=== PATIENT | female | born 1955 | race Caucasian/White ===

== ENCOUNTER → 2017-08-11 | Outpatient (CLI) | payer BC | LOC: MAMMO 12:52 → RAD 13:00 | DX: Z12.31 Encounter for screening mammogram for malignant neoplasm of breast (principal); N63.41 Unspecified lump in right breast, subareolar ==

== ENCOUNTER → 2017-08-26 | Outpatient (CLI) | payer BC | LOC: MAMMO 09:30 | DX: N63.10 Unspecified lump in the right breast, unspecified quadrant (principal) ==

== ENCOUNTER 2018-05-19 04:05 | Emergency (ER) | payer BC ==
[2018-05-19 04:52] LABS: ALBUMIN 2.7 g/dL (3.5-5.0); CALCIUM 8.4 mg/dL (8.4-10.2); POTASSIUM 5.5 mmol/L (3.6-5.0); TOTAL BILIRUBIN 0.7 mg/dL (0.2-1.3); TOTAL PROTEIN 4.7 g/dL (6.3-8.2)
[2018-05-19 04:53] LABS: TROPONIN-I 0.1 ng/mL (0.00-0.06)
[2018-05-19 04:57] LABS: CKMB ISOENZYME 2.8 ng/mL (0.6-3.5); HEMATOCRIT 21.3 % (37.0-47.0); HEMOGLOBIN 6.4 g/dL (12.5-16.0); MEAN CELL VOLUME 101 fl (78-100); MEAN CORPUSCULAR HEMOGLOBIN 30 pg (27-31); MEAN CORPUSCULAR HGB CONC 30 g/dL (33-37); MEAN PLATELET VOLUME 10.4 fl (7.4-10.4); PLATELET COUNT 284 K/mm3 (130-400); RED BLOOD COUNT 2.12 M/mm3 (4.10-5.30); RED CELL DISTRIBUTION WIDTH 18.2 % (11.5-14.5); WHITE BLOOD COUNT 14.8 K/mm3 (4.8-10.8)
[2018-05-19 05:32] LABS: D-DIMER 3.71 mg/L FEU (0.15-0.50)
[2018-05-19 05:46] LABS: BAND 1 % (0-10); LYMPHOCYTE 16 % (20-51); METAMYELOCYTE 1 % (0-0); MONOCYTE 4 % (3-10); MYELOCYTE 4 % (0-0); NEUTROPHILS 76 % (42-75)
[2018-05-19 05:47] LABS: POLYCHROMASIA 1+
[2018-05-19 05:48] LABS: NUCLEATED RED BLOOD CELL 3 (0-6)
[2018-05-19 05:57] LABS: URINE APPEARANCE HAZY; URINE COLOR YELLOW
[2018-05-19 05:58] LABS: URINE BILIRUBIN NEGATIVE (NEGATIVE); URINE BLOOD 50 ery/uL (NEGATIVE); URINE GLUCOSE 50 mg/dL mg/dL (NEGATIVE); URINE KETONE NEGATIVE (NEGATIVE); URINE LEUKOCYTE ESTERASE NEGATIVE (NEGATIVE); URINE NITRATE NEGATIVE (NEGATIVE); URINE PROTEIN(semi-quant) 2+ mg/dL (NEGATIVE); URINE UROBILINOGEN NORMAL (NORMAL)
[2018-05-19 06:00] VITALS: BP 82/49
[2018-05-19] MEDS ORDERED: ACETAMINOPHEN-H1 TA2 PO (07:40)
[2018-05-19] MEDS ORDERED: PREDNISONE10 MG PO (07:41)
[2018-05-19] MEDS ORDERED: ACETAMINOPHEN-O1 TAB PO (07:42)
[2018-05-19] MEDS ORDERED: ALENDRONATE SOD70 MG PO (07:43)
[2018-05-19] MEDS ORDERED: AMLODIPINE BESYL5 MG PO (07:43)
[2018-05-19] MEDS ORDERED: ACETAMINOPHEN325 M1 PO (07:43)
[2018-05-19] MEDS ORDERED: ATORVASTATIN CA20 MG PO (07:44)
[2018-05-19] MEDS ORDERED: ASPIRIN ADULT L81 M3 PO (07:44)
[2018-05-19] MEDS ORDERED: CYCLOBENZ5 MG PO (07:45)
[2018-05-19] MEDS ORDERED: FLUTICASON0.05 MG/AC NS (07:46)
[2018-05-19] MEDS ORDERED: GLIMEPIRIDE2 M1 PO (07:46)
[2018-05-19] MEDS ORDERED: BENADRYL PO (07:46)
[2018-05-19] MEDS ORDERED: MELOXICAM7.5 MG PO (07:47)
[2018-05-19] MEDS ORDERED: GLUCOPHAGE PO (07:49)
[2018-05-19] MEDS ORDERED: MYCOPHENOLATE500 MG PO (07:50)
[2018-05-19] MEDS ORDERED: WARFARIN SOD5 MG PO (07:51)
== END 2018-05-19 06:00 | disposition short-term general hospital (02) ==
LOC: ED 04:05
PROVIDERS: Physician Assistant
DX: K92.2 Gastrointestinal hemorrhage, unspecified (principal); I21.4 Non-ST elevation (NSTEMI) myocardial infarction; E86.0 Dehydration; I95.9 Hypotension, unspecified; E87.5 Hyperkalemia; E87.2 Acidosis; R74.8 Abnormal levels of other serum enzymes; R79.9 Abnormal finding of blood chemistry, unspecified; R79.1 Abnormal coagulation profile; R09.02 Hypoxemia; R00.0 Tachycardia, unspecified; R06.03 Acute respiratory distress; E11.9 Type 2 diabetes mellitus without complications; I10 Essential (primary) hypertension; Z86.718 Personal history of other venous thrombosis and embolism; Z79.01 Long term (current) use of anticoagulants; Z79.82 Long term (current) use of aspirin; Z79.899 Other long term (current) drug therapy; Z79.84 Long term (current) use of oral hypoglycemic drugs; I27.20 Pulmonary hypertension, unspecified; I71.9 Aortic aneurysm of unspecified site, without rupture; J84.9 Interstitial pulmonary disease, unspecified; M06.9 Rheumatoid arthritis, unspecified
CPT/HCPCS: J3430; J7030; J7060

== ENCOUNTER → 2020-04-03 | Outpatient (CLI) | payer BC ==
[~2020-04-03] MED LIST: ACETAMINOPHEN-H1 TA2 PO; ACETAMINOPHEN-O1 TAB PO; ACETAMINOPHEN325 M1 PO; ALENDRONATE SOD70 MG PO; AMLODIPINE BESYL5 MG PO; ASPIRIN ADULT L81 M3 PO; ATORVASTATIN CA20 MG PO; BENADRYL PO; CYCLOBENZ5 MG PO; FLUTICASON0.05 MG/AC NS; GLIMEPIRIDE2 M1 PO; GLUCOPHAGE PO; MELOXICAM7.5 MG PO; MYCOPHENOLATE500 MG PO; PREDNISONE10 MG PO; WARFARIN SOD5 MG PO
== END ==
LOC: MAMMO 03-27 10:00
DX: Z12.31 Encounter for screening mammogram for malignant neoplasm of breast (principal)